=== PATIENT | male | born 1980 | race Caucasian/White ===

== ENCOUNTER → 2023-05-03 | Outpatient (CLI) | payer OTHER ==
--- NOTE | 2023-05-07 14:34 | MR ---
EXAMINATION TYPE: MR knee RT wo con DATE OF EXAM: 05/03/2023 COMPARISON: No radiographic correlation available HISTORY: 42-year-old male M23.306, Rt knee pain and swelling, falling injury TECHNIQUE: Multiplanar, multisequence imaging of the right knee is performed without IV contrast. FINDINGS: There is ACL rupture. PCL, MCL, and LCL complex appear intact. There is a large bone bruise with osseous edema and nondepressed impaction fracture along the posteri or lip of the lateral tibial plateau measuring 8 mm AP and 1.5 cm wide. There may be a subtle oblique undersurface tear involving the junction of the posterior horn and body of the lateral meniscus, cartilage 22. Focal high-grade chondral defect along the mid weightbearing aspect of the lateral compartment measur ing 5 x 6 mm. Otherwise, lateral compartment articular cartilage volume is maintained. Severely diminutive medial meniscus, possible sequela of prior meniscectomy. Clinical correlation rec ommended. Overall compartment articular cartilage volume is maintained. Mild superficial fraying of the articular cartilage along the patella. Extensor mechanism is intact. Small joint effusion. No Weber's cyst. Normal popliteal artery anatomy and muscle bulk. No suspicious bone marrow replacement. IMPRESSION: 1. ACL rupture. 2. Corresponding large bone bruise and nondepressed impaction fracture measuring 1.5 cm wide and 0.8 cm AP along the posterior lip of the lateral tibial plateau may be secondary to pivot shift injury. 3. Focal deep chondral defect measuring 5 x 6 mm along the mid weightbearing aspect of the lateral fe moral condyle. 4. Small oblique undersurface tear at the junction of the posterior horn and body of the lateral meni scus. 5. Diffusely diminutive medial meniscus. Query any history of prior meniscectomy. 6. Some superficial fraying of articular cartilage along the backside of the patella.
== END | disposition home or self-care (01) ==
LOC: RADMRIMAIN 10:17
PROVIDERS: ATTEND Orthopaedic Surgery
DX: S83.281A Other tear of lateral meniscus, current injury, right knee, initial encounter (principal); M23.300 Other meniscus derangements, unspecified lateral meniscus, right knee; M23.8X1 Other internal derangements of right knee; F17.200 Nicotine dependence, unspecified, uncomplicated; W19.XXXA Unspecified fall, initial encounter